=== PATIENT | female | born 1975 | race African-American/Black ===

== ENCOUNTER 2023-04-25 15:44 | Emergency (ER) | payer MEDICAID ==
[~2023-04-25] VITALS: Ht 162.6 cm; Wt 61.0 kg
[2023-04-25 16:28] VITALS: BP 157/88; PULSE 65; RESP 18; TEMP 98.8; O2SAT 97
[2023-04-25] MEDS: ONDANSETRON ODT 4 MG TAB PO ONE (16:58)
[2023-04-25] MEDS: KETOROLAC TROMETH 60MG/2ML VIAL IM ONE (16:58)
[2023-04-25] MEDS ORDERED: METH4PAK PO (17:36)
[2023-04-25] MEDS ORDERED: SUMA50TA2 PO (17:36)
[2023-04-25] MEDS ORDERED: AMOX875T3 PO (17:36)
== END 2023-04-25 17:44 | disposition home or self-care (01) ==
LOC: ER 15:44
DX: G43.009 Migraine without aura, not intractable, without status migrainosus (principal); J01.90 Acute sinusitis, unspecified
CPT/HCPCS: 96372; 99283; J1885; Q0162